=== PATIENT | male | born 1965 | race Caucasian/White ===

== ENCOUNTER 2022-08-19 01:00 | Day surgery (SDC) | payer OTHER, SELFPAY ==
[2022-08-04 14:17] VITALS: BMI 32.5
[2022-08-19 06:24] VITALS: BP 130/98; PULSE 87; RESP 18; TEMP 36.3; O2SAT 98
[2022-08-19] MEDS: LACTATED RINGERS 1,000 ML 150 ML IV CONT (06:31)
[2022-08-19 07:07] VITALS: BP 124/92; PULSE 76; RESP 20; O2SAT 98
--- NOTE | 2022-08-19 07:27 | WPDANESEPPF ---
Anes - Initial Pre Proc Eval Procedure: Operation Date: 08/19/22 07:30 Proposed Procedures p Screening Colonoscopy - Donald Brewer MD Date/Time: 08/19/22 07:27 Surgeon: Donald Brewer MD Pre Op Diagnosis: neoplasm screening Patient Data Age: 57 Gender: M Height: 1.75 m Weight: 98.5 kg Last Vital Signs Temp 97.4 F L 08/19/22 06:24 Pulse 87 08/19/22 06:24 Resp 18 08/19/22 06:24 BP 130/98 H 08/19/22 06:24 Pulse Ox 98 08/19/22 06:24 O2 Del Method Room Air 08/19/22 06:24 Allergies Allergy/AdvReac Type Severity Reaction Status Date / Time No Known Allergies Allergy Mild Verified 08/19/22 06:23 Home Medications Medication Instructions Recorded Confirmed Type amlodipine 10 mg tablet 10 mg PO DAILY #30 tabs 01/21/21 08/04/22 Rx fluorouracil 5 % topical cream 1 applic topical BID 05/24/21 08/04/22 History (Efudex) lisinopril 40 mg tablet 40 mg PO DAILY #90 tabs 09/09/21 08/04/22 Rx sildenafil (pulm.hypertension) 20 20 mg PO .COMPLEX #90 tabs 02/02/22 08/04/22 Rx mg tablet atorvastatin 10 mg tablet 10 mg PO DAILY #30 tabs 03/12/22 08/04/22 Rx hydrochlorothiazide 12.5 mg tablet 12.5 mg PO DAILY #30 tabs 03/12/22 08/04/22 Rx alprazolam 0.25 mg tablet 0.25 mg PO TID PRN anxiety #30 tabs 05/24/22 08/04/22 Rx eszopiclone 3 mg tablet (Lunesta) 3 mg PO QHS PRN insomnia #30 tabs 05/24/22 08/04/22 Rx Patient hx anesthesia problems: none Family hx anesthesia problems: none Results Review: All pre-operative results and documents have been reviewed as part of the pre-operative evaluation. [facility] Past Medical History Medical History (Updated 05/24/22 @ 15:07 by Ubaldo Kennedy MD) Abnormal fasting glucose (01/08/21) Glucose 101 on 01/08/2021. Actinic keratosis Adult BMI 31.0-31.9 kg/sq m Anxiety BMI 32.0-32.9,adult Colon cancer screening COVID-19 (11/30/20) Edema, peripheral Elevated liver enzymes (01/08/21) AST 27 with ALT elevated at 48 on 01/08/2021. Encounter for prostate cancer screening PSA normal at 0.4 on 01/08/2021. Encounter for wellness examination in adult Essential (primary) hypertension History of skin cancer HTN (hypertension) Insomnia Male erectile dysfunction, unspecified Testosterone 389 with free testosterone 56.9 on 01/08/2021. Mixed hyperlipidemia Cholesterol 274 with HDL 61, triglycerides 123 and LDL 187 on 01/08/2021. Obesity (BMI 30.0-34.9) Obstructive sleep apnea on CPAP Osteoarthritis involving multiple joints on both sides of body Social History Social History (Updated 05/24/22 @ 13:56 by Melissa Martinez MA) Smoking status: Never smoker Alcohol intake: current Drinks per week: 20 Alcohol use details: Beer Substance use: never Substance use type: does not use Living arrangements: alone Anes - Eval Final PreProcedure Day of Procedure 08/19/22 07:27 Patient weight: obese Heart: regular rate and rhythm Lungs: clear to auscultation Airway: Mallampati scale class II Neurological: alert and oriented Last oral intake: >/= 8 hours ASA classification: II Emergent: no Anesthetic plan: proceed Anesthesia type and monitoring: general GIVS and standard monitoring Results Review: All pre-operative results and documents have been reviewed as part of the pre-operative evaluation. Informed Consent: The patient's anesthetic plan and its attendant risks and benefits were discussed with the patient/family/POA. Questions were solicited and answers provided to the satisfaction of the patient/family/POA.
--- NOTE | 2022-08-19 07:28 | PM.HPGS ---
History of Present Illness History of Present Illness Consent: Risks, benefits, and alternatives have been discussed and questions answered. Patient agrees to proceed with procedure. Chief complaint: neoplasm screening Narrative: Jc Landon is a 57 year old male here for first screening colonoscopy Review of Systems Constitutional: Constitutional: Denies headache(s) and Denies weakness Eyes: Eyes: Denies blurry vision ENT: Reports Normal hearing present, Denies headache(s) and Denies neck pain Cardiovascular: Cardiovascular: Denies chest pain and Denies dyspnea Respiratory: Respiratory: Denies dyspnea Gastrointestinal: Gastrointestinal: Reports no additional gastrointestinal complaints Genitourinary: Genitourinary: Denies dysuria Musculoskeletal: Musculoskeletal: Denies neck pain Integumentary/Breasts: Skin/Breast: Denies dry skin Neurologic: Reports Normal hearing present, Denies headache(s) and Denies weakness Psychiatric: Psychiatric: Denies anxiety Endocrine: Endocrine: Denies change in body appearance Hematologic/Lymphatic: Hematologic/Lymphatic: Denies easy bleeding Allergic/Immunologic: Allergic/Immunologic: Denies urticaria [facility] Past Medical History Medical History (Updated 05/24/22 @ 15:07 by Ubaldo Kennedy MD) Abnormal fasting glucose (01/08/21) Glucose 101 on 01/08/2021. Actinic keratosis Adult BMI 31.0-31.9 kg/sq m Anxiety BMI 32.0-32.9,adult Colon cancer screening COVID-19 (11/30/20) Edema, peripheral Elevated liver enzymes (01/08/21) AST 27 with ALT elevated at 48 on 01/08/2021. Encounter for prostate cancer screening PSA normal at 0.4 on 01/08/2021. Encounter for wellness examination in adult Essential (primary) hypertension History of skin cancer HTN (hypertension) Insomnia Male erectile dysfunction, unspecified Testosterone 389 with free testosterone 56.9 on 01/08/2021. Mixed hyperlipidemia Cholesterol 274 with HDL 61, triglycerides 123 and LDL 187 on 01/08/2021. Obesity (BMI 30.0-34.9) Obstructive sleep apnea on CPAP Osteoarthritis involving multiple joints on both sides of body Social History Social History (Updated 05/24/22 @ 13:56 by Melissa Martinez MA) Smoking status: Never smoker Alcohol intake: current Drinks per week: 20 Alcohol use details: Beer Substance use: never Substance use type: does not use Living arrangements: alone Meds Home Medications and Allergies Home Medications Medication Instructions Recorded Confirmed Type amlodipine 10 mg tablet 10 mg PO DAILY #30 tabs 01/21/21 08/04/22 Rx fluorouracil 5 % topical cream 1 applic topical BID 05/24/21 08/04/22 History (Efudex) lisinopril 40 mg tablet 40 mg PO DAILY #90 tabs 09/09/21 08/04/22 Rx sildenafil (pulm.hypertension) 20 20 mg PO .COMPLEX #90 tabs 02/02/22 08/04/22 Rx mg tablet atorvastatin 10 mg tablet 10 mg PO DAILY #30 tabs 03/12/22 08/04/22 Rx hydrochlorothiazide 12.5 mg tablet 12.5 mg PO DAILY #30 tabs 03/12/22 08/04/22 Rx alprazolam 0.25 mg tablet 0.25 mg PO TID PRN anxiety #30 tabs 05/24/22 08/04/22 Rx eszopiclone 3 mg tablet (Lunesta) 3 mg PO QHS PRN insomnia #30 tabs 05/24/22 08/04/22 Rx Allergies Allergy/AdvReac Type Severity Reaction Status Date / Time No Known Allergies Allergy Mild Verified 08/19/22 06:23 Vital Signs Vital Signs - 24 hr 08/19/22 06:24 Temperature 97.4 F L Pulse Rate 87 Respiratory Rate 18 Blood Pressure 130/98 H Pulse Oximetry 98 Oxygen Delivery Room Air Exam Const: General: comfortable and no acute distress HENMT: General nose exam: Normal nares present Eyes: General: appearance normal, both eyes and all related structures Neck: Neck: no JVD Resp: Auscultation: clear to auscultation bilaterally Cardio: Rate: regular rate Rhythm: regular rhythm GI: Inspection: non-distended GI Palp: Yes Soft to palpation Skin: General skin exam: normal color Neuro: General: gait normal Speech: parul
[2022-08-19 07:47] VITALS: BP 106/73; PULSE 78; RESP 18; O2SAT 98
[2022-08-19 07:57] VITALS: BP 128/86; PULSE 76; RESP 22; O2SAT 98
== END 2022-08-19 08:15 | disposition home or self-care (01) ==
PROVIDERS: PCP Family Medicine; Visit Provider Internal Medicine Gastroenterology
PROC: 0DJD8ZZ Inspection of Lower Intestinal Tract, Via Natural or Artificial Opening Endoscopic (ICD-10-PCS; CPT 45378; principal; 2022-08-19 07:30)
DX: Z12.11 Encounter for screening for malignant neoplasm of colon (principal); D12.0 Benign neoplasm of cecum; K64.8 Other hemorrhoids; F41.9 Anxiety disorder, unspecified; Z86.16 Personal history of COVID-19; R60.0 Localized edema; R74.01 Elevation of levels of liver transaminase levels; I10 Essential (primary) hypertension; G47.00 Insomnia, unspecified; E78.2 Mixed hyperlipidemia; G47.33 Obstructive sleep apnea (adult) (pediatric); M19.90 Unspecified osteoarthritis, unspecified site; E66.9 Obesity, unspecified; Z68.32 Body mass index [BMI] 32.0-32.9, adult; K63.5 Polyp of colon
CPT/HCPCS: 45385; 45380; 88305; J2704; J7120

== ENCOUNTER 2022-12-22 09:56 | Outpatient (CLI) | payer OTHER, SELFPAY ==
--- NOTE | 2022-12-22 10:02 | ECG_ITS ---
Measurements Intervals [place] Rate: 69 P: 20 VT: 146 QRS: -17 QRSD: 87 T: 0 QT: 369 QTc: 396 Interpretive Statements SINUS RHYTHM EARLY PRECORDIAL R/S TRANSITION BORDERLINE T WAVE ABNORMALITY- INFERIOR LEADS BORDERLINE ECG NO PREVIOUS ECG AVAILABLE FOR COMPARISON Electronically Signed On 12-22-2022 10:33:12 [employer] OPERATOR by Sanya Ferris D.O.
== END 2022-12-22 09:57 | disposition home or self-care (01) ==
LOC: ANHCARD 09:59
PROVIDERS: PCP Family Medicine; Visit Provider Family Medicine
DX: R07.89 Other chest pain (principal); I10 Essential (primary) hypertension; R94.31 Abnormal electrocardiogram [ECG] [EKG]
CPT/HCPCS: 93005

== ENCOUNTER 2023-01-02 09:14 | Outpatient (CLI) | payer OTHER, SELFPAY ==
--- NOTE | 2023-01-02 09:31 | EST_ITS ---
Patient Info Name: Jc Landon Age: 57 years : 1965 Gender: Male Ht: 69 in Wt: 230 lbs BSA: 2.29 m2 HR: 90 bpm BP: 129 / 83 mmHg Heart Rhythm: Sinus Rhythm Exam Date: 01/02/2023 9:40 AM Exam Location: [facility] Stress Patient Status: Outpatient Admit Date: 01/02/2023 Staff Ordering Physician: Samreen Garcia NP Attending Provider: Samreen Garcia NP Exercise Technologist: Rochelle Boles CT Exercise Physician: Sanya Ferris DO Exam Type: CA stress test treadmill Study Info Indications R07.9 - Chest pain, unspecified A treadmill exercise stress test was performed. Summary 1. 1. Negative Alex exercise stress test for ischemic ST changes by ECG criteria. 2. 2. Good functional capacity, achieving 9.8 METs of workload. 3. 3. Appropriate HR response to exercise. 4. 4. Appropriate HR recovery at 1 minute post exercise. 5. 5. No imaging with stress testing. 6. 6. No images with stress testing. 7. 7. Patient informed of the above results. Protocol: Alex Stress ECG Details Stage: REST Duration (min): 1 min : 26 sec Speed (mph): 0.0 Grade (%): 0 HR (bpm): 95 SBP (mmHg): 129 DBP (mmHg): 83 METS: --- Stage: REST Duration (min): 4 min : 41 sec Speed (mph): 0.0 Grade (%): 0 HR (bpm): 90 SBP (mmHg): 129 DBP (mmHg): 83 METS: --- Stage: STAGE 1 Duration (min): 1 min : 0 sec Speed (mph): 1.7 Grade (%): 10 HR (bpm): 114 SBP (mmHg): 129 DBP (mmHg): 83 METS: --- Stage: STAGE 1 Duration (min): 2 min : 0 sec Speed (mph): 1.7 Grade (%): 10 HR (bpm): 123 SBP (mmHg): 129 DBP (mmHg): 83 METS: --- Stage: STAGE 1 Duration (min): 3 min : 0 sec Speed (mph): 1.7 Grade (%): 10 HR (bpm): 124 SBP (mmHg): 168 DBP (mmHg): 84 METS: --- Stage: STAGE 2 Duration (min): 1 min : 0 sec Speed (mph): 2.5 Grade (%): 12 HR (bpm): 135 SBP (mmHg): 168 DBP (mmHg): 84 METS: --- Stage: STAGE 2 Duration (min): 2 min : 0 sec Speed (mph): 2.5 Grade (%): 12 HR (bpm): 141 SBP (mmHg): 176 DBP (mmHg): 86 METS: --- Stage: STAGE 2 Duration (min): 3 min : 0 sec Speed (mph): 2.5 Grade (%): 12 HR (bpm): 147 SBP (mmHg): 176 DBP (mmHg): 86 METS: --- Stage: STAGE 3 Duration (min): 1 min : 0 sec Speed (mph): 3.4 Grade (%): 14 HR (bpm): 155 SBP (mmHg): 174 DBP (mmHg): 87 METS: --- Stage: STAGE 3 Duration (min): 1 min : 38 sec Speed (mph): 3.4 Grade (%): 14 HR (bpm): 164 SBP (mmHg): 174 DBP (mmHg): 87 METS: --- Stage: RECOVERY Duration (min): 0 min : 21 sec Speed (mph): 0.0 Grade (%): 0 HR (bpm): 162 SBP (mmHg): 174 DBP (mmHg): 87 METS: --- Stage: RECOVERY Duration (min): 1 min : 21 sec Speed (mph): 0.0 Grade (%): 0 HR (bpm): 136 SBP (mmHg): 174 DBP (mmHg): 87 MET
== END 2023-01-02 09:15 | disposition home or self-care (01) ==
PROVIDERS: PCP Family Medicine; Visit Provider Nurse Practitioner Family
DX: R07.89 Other chest pain (principal); I10 Essential (primary) hypertension
CPT/HCPCS: 93017

== ENCOUNTER → 2024-03-11 11:07 | Outpatient (CLI) | payer OTHER, SELFPAY ==
--- NOTE | ~2024-03-11 | XR_ITS ---
EXAMINATION: XR knee RT min 4V DATE: 03/11/2024 11:20 INDICATION: Right knee pain. TECHNIQUE: 4 views of right knee were obtained. COMPARISON: None. FINDINGS: Bone alignment is normal. No fracture. There is mild tricompartmental osteoarthritis. There is a moderate-sized knee joint effusion with loose bodies. IMPRESSION: 1. Mild right knee osteoarthritis. 2. Moderate-sized right knee joint effusion with loose bodies. Reviewed, dictated and finalized at location E.
== END ==
PROVIDERS: PCP Family Medicine; Visit Provider Family Medicine
DX: M17.11 Unilateral primary osteoarthritis, right knee (principal); M25.461 Effusion, right knee
CPT/HCPCS: 73564